=== PATIENT | male | born 1965 | race Caucasian/White ===

== ENCOUNTER 2020-01-30 15:15 | Outpatient (REF) | payer OTHER, SELFPAY ==
[2020-01-30 16:30] LABS: Anion Gap 13 (12-20); Blood Urea Nitrogen 15 mg/dL (9-16); Carbon Dioxide 26 mmol/L (22-29); Chloride 102 mmol/L (96-108); Estimated Glomerular Filt Rate > 60; Glucose Random 86 mg/dL (60-115); Sodium 137 mmol/L (135-145)
== END 2020-01-30 15:16 | disposition home or self-care (01) ==
LOC: HO.LAB 15:15
PROVIDERS: PCP Family Medicine; Visit Provider Family Medicine
DX: I10 Essential (primary) hypertension (principal); Z83.3 Family history of diabetes mellitus
CPT/HCPCS: 80051; 82565; 82947; 84520

== ENCOUNTER 2021-02-04 14:43 | Outpatient (REF) | payer OTHER, SELFPAY ==
[2021-02-04 15:37] LABS: Anion Gap 13 (12-20); Blood Urea Nitrogen 14 mg/dL (9-16); Carbon Dioxide 27 mmol/L (22-29); Chloride 106 mmol/L (96-108); Estimated Glomerular Filt Rate > 60; Potassium 4.4 mmol/L (3.3-5.1); Sodium 142 mmol/L (135-145)
== END 2021-02-04 14:44 | disposition home or self-care (01) ==
LOC: HO.LAB 14:43
PROVIDERS: PCP Family Medicine; Visit Provider Family Medicine
DX: I10 Essential (primary) hypertension (principal)
CPT/HCPCS: 36415; 80051; 82565; 84520

== ENCOUNTER 2023-01-07 09:26 | Outpatient (REF) | payer OTHER, SELFPAY ==
[2023-01-07 11:06] LABS: Anion Gap 14 (12-20); Blood Urea Nitrogen 15 mg/dL (9-16); Carbon Dioxide 23 mmol/L (22-29); Chloride 106 mmol/L (96-108); Estimated Glomerular Filt Rate > 60; Potassium 4.1 mmol/L (3.3-5.1); Sodium 139 mmol/L (135-145)
[2023-01-07 11:07] LABS: Prostate Specific Antigen Scr 1.03 ng/mL (<0.05-4.0)
== END 2023-01-07 09:27 | disposition home or self-care (01) ==
LOC: HO.LAB 09:26
PROVIDERS: PCP Family Medicine; Visit Provider Family Medicine
DX: Z12.5 Encounter for screening for malignant neoplasm of prostate (principal); I10 Essential (primary) hypertension; R35.1 Nocturia
CPT/HCPCS: 36415; 80051; 82565; 84153; 84520

== ENCOUNTER 2023-09-13 16:02 | Outpatient (REF) | payer OTHER, SELFPAY ==
[2023-09-13 17:16] LABS: Anion Gap 13 (12-20); Blood Urea Nitrogen 16 mg/dL (9-16); Carbon Dioxide 25 mmol/L (22-29); Chloride 106 mmol/L (96-108); Estimated Glomerular Filt Rate > 60; Potassium 3.8 mmol/L (3.3-5.1); Sodium 140 mmol/L (135-145)
== END 2023-09-13 16:03 | disposition home or self-care (01) ==
LOC: HO.LAB 16:02
PROVIDERS: PCP Family Medicine; Visit Provider Family Medicine
DX: I10 Essential (primary) hypertension (principal)
CPT/HCPCS: 36415; 80051; 82565; 84520

== ENCOUNTER 2024-12-10 09:05 | Outpatient (AMB) | payer OTHER, SELFPAY ==
--- NOTE | 2024-12-10 09:30 | A.OFFPC_ITS ---
Vital Signs 12/10/24 09:40 12/10/24 10:06 Height 6 ft 1 in Weight 101.605 kg BMI 29.6 BP 134/90 H 132/84 Pulse 78 Pulse Source Pulse Oximeter Temp 98.7 F Temp Source Temporal Artery Scan Pulse Oximetry (%) 96 Oxygen Delivery Method Room Air Intake Visit Reasons: 3 MO F/UP - ZOIE PT Needlemaker Required: No Accompanied by: Self / Same As Patient Allergies No Known Allergies Allergy (Unknown, Unverified 12/10/24 09:30) NOT APPLICABLE Tobacco use date assessed: 12/10/24 Dental Screening Dental Screen Date: 12/10/24 Did you have a dental visit in the last 12 months?: Yes Did you have a dental problem in the last 6 months where you did not have access to dental care?: No Was dental information given to patient?: No HPI HPI Comments History of Present Illness Details 59-year-old male with history of hyperte nsion, asthma, mild intermittent asthma, varicose veins, GERD, history of PVCs presents to the office today accompanied by his for management of chronic conditions and to establish care. Prior PCP Dr. Parker, last seen 08/2024 Hypertension-on amlodipine 10 mg daily, metoprolol 25 mg. Blood pressure 132/84. Mild intermittent asthma-no recent exacerbation. Albuterol PRN as well as Singulair. Only uses both during allergy season eczema long ago- no flares in years Varicose veins-not bothersome History of PVCs-on metoprolol 25 mg twice daily * prior PCP had IgE syndrome on chart but reports this is incorrect. Has never had symptoms consistent with IgE syndrome and does not follow with an [employer] supervisor Concerns: None Health maintenance: Last colonoscopy 11/2015, Dr. Rangel, 10 year follow-up Due for PSA ROS: General: No fevers, malaise, unintentional weight loss HEENT: No blurred vision, diplopia. No sore throat, nasal congestion, rhinorrhea, sinus pain, ear pain Cardiovascular: No chest pain, palpitations, or leg edema Respiratory: No shortness of breath, wheezing, cough GI: No abdominal pain, nausea, vomiting, diarrhea, constipation, melena, hematochezia : No dysuria, hematuria, increased urinary frequency, decreased urinary output MSK: No myalgia, back pain Neuro: No headaches, weakness, paresthesias Skin: No rashes or lesions EXAM: Constitutional - Awake and Alert, No apparent distress Eyes - PERRL Cardiovascular - S1S2, RRR, No edema Respiratory - Normal lung expansion, Normal respiratory effort, No respiratory distress, CTA bilaterally Extremities - no calf tenderness bilaterally, no swelling Skin - Warm/Dry Neurological - Alert & oriented x3 Psychological - Appropriate affect [facility] Medical History GERD (gastroesophageal reflux disease) PVCs (premature ventricular contractions) Varicose veins of bilateral lower extremities with other complications Asthma Hypertension Surgical History History of colonoscopy (~11/21/15) Social History Housing: House Patient Tobacco Use Status: Never used Tobacco e-Cigarette/Vaping Use: Never Used service: No Current occupational status: retired Cognitive needs: No Hearing needs: No Vision needs: Yes (Reading glasses) Questionnaire PHQ-9 Over the last 2 weeks, how often have you been bothered by any of the following problems? 1. Little interest or pleasure in doing things: not at all 2. Feeling down, depressed, or hopeless: not at all 3. Trouble falling or staying asleep, or sleeping too much: not at all 4. Feeling tired or having little energy: not at all 5. Poor appetite or overeating: not at all 6. Feeling bad about yourself - or that you are a failure or have let yourself or your family down: not at all 7. Trouble concentrating on things, such as reading the newspaper or watching television: not at all 8. Moving or speaking so slowly that other people could have noticed. Or the opposite - being so fidgety or restless that you have been moving around a lot more than usual: not at all 9. Thoughts that you would be better off or of hurting yourself in some way: not at all Total score: 0 Depression Screening Interpretation: Negative Depression Screening Done: Yes 41715 - PHQ-9 Billing: Yes Source: Developed by Drs. Steve Prakash, Anisha Hand, Deshawn Goel and colleagues, with an educational is[place] from [employer]. Thrive Questionnaire Date Thrive assessed: 12/10/24 I am a: Patient Within the past 12 months, did the food you bought not last and you didn't have the money to get more?: Never true Within the past 12 months, did you worry whether your food would run out before you got money to buy more?: Never true Do you have trouble paying for medicines?: No Do you have trouble getting transportation to medical appointments?: No Do you have trouble paying your heating and electricity bill?: No Do you have trouble taking care of your child, family member or friend?: No Do you have trouble with day-to-day activities such as bathing, preparing meals, shopping, managing finances, etc.?: No Are you currently unemployed and looking for a job?: No Are you interested in more education?: No Please select the resources that you would like help with: None THRIVE Score: 0 AUDIT C Alcohol Use Questionnaire (AUDIT-C) 1. How often do you have a drink containing alcohol?: Monthly or less Total Score: 1 JARED-7 AMB Questionnaire JARED-7 Date JARED - 7 assessed: 12/10/24 Feeling nervous, anxious, or on edge: 0 = Not at all Not being able to stop or control worryin = Not at all Worrying too much about different things: 0 = Not at all Trouble relaxin = Not at all Being so restless that it is hard to sit still: 0 = Not at all Becoming easily annoyed or irritable: 0 = Not at all Feeling afraid as if something awful might happen: 0 = Not at all Total JARED-7 score (0-4 normal; 5-9 mild; 10-14 moderate; 15-21 severe): 0 Source: Developed by Drs. Steve Prakash, Anisha Hand, Deshawn Goel and colleagues, with an educational isreal from [employer]. JARED-7 Assessment Billing JARED-7 Assessment Tool: JARED-7 Assessment 66149 Physical exam (Primary Care) Vital Signs: Last Vital Signs Temp 98.7 F 12/10/24 09:40 Pulse 78 12/10/24 09:40 BP 134/90 H 12/10/24 09:40 Pulse Ox 96 12/10/24 09:40 Oxygen Delivery Method Room Air 12/10/24 09:40 BMI result Body Mass Index 29.6 Tobacco/Smoking Status: Tobacco use Status Tobacco use date assessed 12/10/24 12/10/24 09:42 Patient Tobacco Use Status Never used Tobacco 12/10/24 09:42 e-Cigarette/Vaping Use Never Used 12/10/24 09:42 PHQ-9: PHQ-9 Score PHQ-9: Total score 0 12/10/24 09:45 Depression Screening Interpretation: Negative Thrive Assessment: Date of Thrive Assessment Date Thrive assessed 12/10/24 12/10/24 09:45 Coding Level of Care Code New Pt Level 4 (11099) Complex EM visit Add On G2211 Diagnoses Hypertension I10 Asthma J45.909 Varicose veins of bilateral lower extremities with other complications I83.893 PVCs (premature ventricular contractions) 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 Continue amlodipine 10 mg and metoprolol 25 mg twice daily (2) Asthma: Code(s): J45.909 - Unspecified asthma, uncomplicated Category: Medical Plan: Stable. Singulair and albuterol PRN (3) Varicose veins of bilateral lower extremities with other complications: Code(s): I83.893 - Varicose veins of bilateral lower extremities with other complications Category: Medical Plan: Monitor for symptoms (4) PVCs (premature ventricular contractions): Code(s): I49.3 - Ventricular premature depolarization Category: Medical Plan: Continue metoprolol (5) Hyperimmunoglobulin E (IgE) syndrome: Code(s): D82.4 - Hyperimmunoglobulin E [IgE] syndrome Category: Medical (6) GERD (gastroesophageal reflux disease): Code(s): K21.9 - Gastro-esophageal reflux disease without esophagitis Category: Medical Plan Follow-up in the office in 6 months. Labs to be completed today as well as several days prior to next visit Orders: Orders Complete Blood Count Auto Diff Today I10 - Essential (primary) hypertension, I49.3 - Ventricular premature depolarization, I83.893 - Varicose veins of bilateral lower extremities with other complications, J45.909 - Unspecified asthma, uncomplicated, K21.9 - Gastro-esophageal reflux disease without esophagitis Lipid Panel Today I10 - Essential (primary) hypertension, I49.3 - Ventricular premature depolarization, I83.893 - Varicose veins of bilateral lower extremities with other complications, J45.909 - Unspecified asthma, uncomplicated, K21.9 - Gastro-esophageal reflux disease without esophagitis Liver Panel Today I10 - Essential (primary) hypertension, I49.3 - Ventricular premature depolarization, I83.893 - Varicose veins of bilateral lower extremities with other complications, J45.909 - Unspecified asthma, uncomplicated, K21.9 - Gastro-esophageal reflux disease without esophagitis Prostate Specific Antigen Today I10 - Essential (primary) hypertension, I49.3 - Ventricular premature depolarization, I83.893 - Varicose veins of bilateral lower extremities with other complications, J45.909 - Unspecified asthma, uncomplicated, K21.9 - Gastro-esophageal reflux disease without esophagitis TSH reflex Free T4 Today I10 - Essential (primary) hypertension, I49.3 - Ventricular premature depolarization, I83.893 - Varicose veins of bilateral lower extremities with other complications, J45.909 - Unspecified asthma, uncomplicated, K21.9 - Gastro-esophageal reflux disease without esophagitis Basic Metabolic Panel 6 Months I10 - Essential (primary) hypertension, I49.3 - Ventricular premature depolarization, J45.909 - Unspecified asthma, uncomplicated, K21.9 - Gastro-esophageal reflux disease without esophagitis Liver Panel 6 Months I10 - Essential (primary) hypertension, I49.3 - Ventricular premature depolarization, J45.909 - Unspecified asthma, uncomplicated, K21.9 - Gastro-esophageal reflux disease without esophagitis Lipid Panel 6 Months I10 - Essential (primary) hypertension, I49.3 - Ventricular premature depolarization, J45.909 - Unspecified asthma, uncomplicated, K21.9 - Gastro-esophageal reflux disease without esophagitis Basic Metabolic Panel Today I10 - Essential (primary) hypertension, I49.3 - Ventricular premature depolarization, I83.893 - Varicose veins of bilateral lower extremities with other complications, J45.909 - Unspecified asthma, uncomplicated, K21.9 - Gastro-esophageal reflux disease without esophagitis
[2024-12-10 09:40] VITALS: BP 134/90; PULSE 78; TEMP 37.1; O2SAT 96; BMI 29.6
--- OUTSIDE RECORDS SUMMARY | 2024-12-10 09:43 | XMS_ITS | Patient Health Record ---
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 Name Role Phone Keith (RETIRED) Corky PHILIPPE Primary Care Provider Unavailable Steve Rangel Unavailable [phone] Allergies Allergen (clinical drug ingredient) Drug/Non Drug Allergy documented on EMR Reaction Allergy Type Onset Date Status seasonal (uncoded) Unknown Allergy A ctive Reason For Referral No Information Medications Medication SIG (Take, Route, Frequency, Duration) Notes Start Date End Date Status Metoprolol Tartrate 25 MG 1 tablet with food Orally Twice a day Active amLODIPine Besylate 5 MG 1 tablet Orally Once a day Active Montelukast Sodium 10 MG 1 tablet in the evening Orally Once a day Active Problems Problem Type SNOMED Code ICD Code Onset Dates Problem Status W/U Status Risk Notes Problem [id number] Encounter for screening for malignant neoplasm of colon (Z12.11) Active confirmed Problem Screening for malignant neoplasm of rectum ([id number]) Encounter for screening for malignant neoplasm of rectum (Z12.12) Active confirmed Problem [id number] Preprocedural examination (Z01.818) Active confirmed Plan Of Treatment Pending Test Test Name Order Date GI BIOPSY 11/21/2015 Future Test Test Name Order Date COLONOSCOPY 08/20/2015 Insurance Providers Payer Name Payer Address Payer Phone Subscriber Number Group Number Insured Name Patient Relationship to Insured Coverage Start Date Coverage End Date [employer] [address] [place] [phone] [id number] BELINDA HOWARD Self - patient is the insured Medical (General) History Medical History History ICD Code Hypertension Denies ND,DM,CVA,Lung disease,renal dise ase Seasonal allergies
[2024-12-10 10:06] VITALS: BP 132/84
== END 2024-12-10 10:09 | disposition home or self-care (01) ==
LOC: HO.HMCHD 09:06
PROVIDERS: PCP Physician Assistant; Visit Provider Physician Assistant
DX: I10 Essential (primary) hypertension (principal); J45.909 Unspecified asthma, uncomplicated; I83.893 Varicose veins of bilateral lower extremities with other complications; I49.3 Ventricular premature depolarization; D82.4 Hyperimmunoglobulin E [IgE] syndrome; K21.9 Gastro-esophageal reflux disease without esophagitis

== ENCOUNTER 2024-12-10 09:05 | Outpatient (REF) | payer OTHER, SELFPAY ==
[2024-12-10 10:33] LABS: MANUAL DIFF FLAG NO
[2024-12-10 10:54] LABS: Hematocrit 44.2 % (42.0-52.0); Hemoglobin 15.4 g/dl (14.0-18.0); Imm Gran Abs Auto 0.07 X10*3/uL (0.00-0.03); Imm Gran Pct Auto 0.6 % (0.0-0.4); Lymphocytes Absolute Auto 2.6 X10*3/uL (1.2-4.9); Mean Corpuscular HGB Conc 34.8 g/dl (31.0-36.0); Mean Corpuscular Hemoglobin 32.8 pg (27.0-33.0); Mean Corpuscular Volume 94.2 fL (80.0-98.0); NRBC Abs Auto 0.000 X10*3/uL (0.0-0.012); NRBC Pct Auto 0.0 /100WBC (0.0-0.2); Platelet Count 269 X10*3/uL (160-400); Red Blood Count 4.69 X10*6/uL (4.60-5.80); White Blood Count 11.1 X10*3/uL (4.8-10.8)
[2024-12-10 11:38] LABS: Alanine Aminotransferase 123 U/L (0-40); Albumin Level 4.5 g/dL (3.5-5.0); Alkaline Phosphatase 98 U/L (39-117); Anion Gap 11 (12-20); Aspartate Amino Transferase 73 U/L (5-37); Blood Urea Nitrogen 13 mg/dL (9-16); Calcium 9.5 mg/dL (8.4-10.2); Carbon Dioxide 26 mmol/L (22-29); Chloride 108 mmol/L (96-108); Cholesterol 218 mg/dL (<200); Estimated Glomerular Filt Rate > 60; HDL Cholesterol 54 mg/dL (>40); Potassium 4.1 mmol/L (3.3-5.1); Sodium 141 mmol/L (135-145); Total Protein 7.4 g/dL (6.5-8.0); Triglycerides 136 mg/dL (<150)
[2024-12-10 11:39] LABS: Prostate Specific Antigen 0.80 ng/mL (<0.05-4.0)
== END 2024-12-10 09:06 | disposition home or self-care (01) ==
LOC: HO.LAB 09:05
PROVIDERS: PCP Physician Assistant; Visit Provider Physician Assistant
DX: Z12.5 Encounter for screening for malignant neoplasm of prostate (principal); I10 Essential (primary) hypertension; I49.3 Ventricular premature depolarization; I83.893 Varicose veins of bilateral lower extremities with other complications; K21.9 Gastro-esophageal reflux disease without esophagitis; J45.909 Unspecified asthma, uncomplicated; D82.4 Hyperimmunoglobulin E [IgE] syndrome
CPT/HCPCS: 36415; 80048; 80061; 80076; 84153; 84443; 85025; 96127